=== PATIENT | female | born 1995 | race Caucasian/White ===

== ENCOUNTER 2017-10-11 18:46 | Emergency (ER) | payer MEDICAID ==
[~2017-10-11] VITALS: Ht 149.9 cm; Wt 45.4 kg
[2017-10-11 18:53] VITALS: BP 111/71
--- NOTE | 2017-10-11 19:04 | NUR ---
PT BIB [facility] WITH A C/O WITNESSED SEIZURE. PT HAS SLIGHT ORAL TRAUMA. PT IS AA&O X4 AND AMBULATORY. PT'S BOYFRIEND IS AT THE BEDSIDE. ROBBIN MCKINLEY IS AT THE BEDSIDE.
[2017-10-11] MEDS ORDERED: LEVETIRACETAM (250 MG) 250 MG TABLET PO ONE ×2 (19:20→19:30)
--- NOTE | 2017-10-11 19:26 | NUR ---
PT REC'D MEDICATION ORDERED.
[2017-10-11] MEDS ORDERED: LamoTRIgine 100 MG TABLET PO SCH (19:30)
== END 2017-10-11 19:42 | disposition home or self-care (01) ==
LOC: ER 18:48
DX: G40.909 Epilepsy, unspecified, not intractable, without status epilepticus (principal)
CPT/HCPCS: 99283; A4606; Z7610